=== PATIENT | female | born 1965 | race Caucasian/White ===

== ENCOUNTER 2017-09-10 10:03 | Outpatient (CLI) | payer OTHER ==
[2012-03-07 06:44] VITALS: BMI 31.8
--- NOTE | 2017-09-10 12:29 | NUR ---
1015-ARRIVED FOR VASCULAR ACCESS NURSE. 1130-TO ROOM. 1155-TIME OUT 1200-PROCEDURE START 1215-PROCEDURE END 1225-DISCHARGE INSTRUCTIONS REVIEWED. 1229-D/C HOME AMBULATORY PER REQUEST.
== END 2017-09-10 12:29 | disposition home or self-care (01) ==
LOC: D.OPS 10:03
DX: Z45.2 Encounter for adjustment and management of vascular access device (principal)

== ENCOUNTER 2018-05-14 07:37 | Inpatient (IN) | payer OTHER ==
[~2018-05-14] VITALS: Ht 162.6 cm; Wt 95.5 kg
[2018-05-14] VITALS (7 sets, daily range): BP systolic 92–179; BP diastolic 53–76
--- NOTE | ~2018-05-14 | MORECARE ---
CASE MANAGEMENT DISCHARGE SUMMARY PATIENT: TRICIA KILLIAN UNIT: [id number] ADM DATE: 05/14/18 AGE: 53 : 67 SEX: F ROOM/BED: D.2218 AUTHOR: CASE, STONE RIGGER PHYSICIAN: REFERRING PHYSICIAN: FINA BISHOP DO DATE OF SERVICE: 05/14/18 Discharge Plan Patient Name: TRICIA KILLIAN [facility] : 1965 Planned Disposition: Home Anticipated Discharge Date: Discharge Date: Expected LOS: Initial Reviewer: [email or web address] Initial Review Date: 05/20/2018 Generated: 05/20/18 11:17 am DCPIA - Discharge Planning Initial Assessment Updated by [email or web address]: Deepa Bocanegra on 05/20/18 10:15 am * Is the patient Alert and Oriented? Yes * How many steps to enterexit or inside your home? 12 * PCP DARIO * Pharmacy [facility] [address] * Preadmission Environment Home with Family * ADLs Independent * Equipment None * List name and contact numbers for known caregivers / representatives who currently or will assist patient after discharge: BRETT () [phone] * Verbal permission to speak to the caregivers and representatives has been obtained from the patient. Yes * Community resources currently utilized None * Additional services required to return to the preadmission environment? Yes * Can the patient safely return to the preadmission environment? Yes * Has this patient been hospitalized within the prior 30 days at any hospital? No Patient Name: TRICIA KILLIAN Page [id number] All edits/amendments must be made on the electronic document DICTATION DATE: 05/20/18 1017 GROUNDS/MAINTENANCE SPECIALIST: 05/20/18 1017 RPT#: [id number] DC DATE: STATUS: ADM IN [facility] [address] [place] [address] END OF REPORT
[2018-05-14] MEDS ORDERED: BUPROPION XL300 MG PO (07:42)
[2018-05-14] MEDS ORDERED: BUPROPION XL150 MG PO (07:43)
[2018-05-14] MEDS ORDERED: MIRAPEX1 MG PO (07:43)
[2018-05-14] MEDS ORDERED: SYNTHROID200 MC1 PO (07:43)
[2018-05-14] MEDS ORDERED: LAMICTAL ODT25 MG PO (07:44)
[2018-05-14 09:46] LABS: ALBUMIN 2.8 g/dL (3.4-5.0); ANION GAP 12.9 mmol/L (8-16); BASOPHILS 0.2 % (0-2); BILIRUBIN - TOTAL 0.39 mg/dL (0.2-1.3); CARBON DIOXIDE 23.4 mmol/L (21.0-32.0); CREATININE - SERUM 1.1 mg/dL (0.6-1.3); EOSINOPHILS 0.1 % (0-7); HEMATOCRIT 36.7 % (36.0-48.0); HEMOGLOBIN 12.2 g/dL (12-16); IMMATURE GRANULOCYTES 0.7 % (0-5); LYMPHOCYTES 5.2 % (15-50); MCH 31.6 pg (26.0-34.0); MCHC 33.2 g/dL (31.0-37.0); MCV 95.1 fL (80.0-100.0); MEAN PLATELET VOLUME 10.5 fL (7.4-10.4); MONOCYTES 2.1 % (2-11); NEUTROPHILS 91.7 % (40-80); POTASSIUM - SERUM 3.3 mmol/L (3.5-5.1); PROTEIN - SERUM 7.2 g/dL (6.4-8.2); RBC 3.86 10x6/uL (4.00-5.40); RDW 14.1 % (11.5-14.5); WBC 13.2 10x3/uL (4.8-10.8)
[2018-05-14 09:49] LABS: PLATELET COUNT 243 10x3/uL (130-400)
[2018-05-15 04:26] LABS: BASOPHILS 0.2 % (0-2); EOSINOPHILS 0.2 % (0-7); IMMATURE GRANULOCYTES 0.5 % (0-5); LYMPHOCYTES 6.4 % (15-50); MCH 31.9 pg (26.0-34.0); MCHC 33.3 g/dL (31.0-37.0); MCV 95.7 fL (80.0-100.0); MEAN PLATELET VOLUME 10.2 fL (7.4-10.4); MONOCYTES 2.2 % (2-11); NEUTROPHILS 90.5 % (40-80); PLATELET COUNT 218 10x3/uL (130-400); RBC 3.45 10x6/uL (4.00-5.40); RDW 14.1 % (11.5-14.5)
[2018-05-15 04:40] VITALS: BMI 36.1
[2018-05-15 04:41] LABS: WBC 9.8 10x3/uL (4.8-10.8)
[2018-05-15 04:45] LABS: ANION GAP 11.7 mmol/L (8-16); CALCIUM 7.7 mg/dL (8.5-10.1); CARBON DIOXIDE 24.1 mmol/L (21.0-32.0); CREATININE - SERUM 1.1 mg/dL (0.6-1.3); MAGNESIUM - SERUM 2.1 mg/dL (1.8-2.4); PHOSPHOROUS 2.1 mg/dL (2.5-4.9)
[2018-05-15 05:07] LABS: POTASSIUM - SERUM 3.8 mmol/L (3.5-5.1)
[2018-05-15 05:18] VITALS: BP 125/78
[2018-05-15 07:49] VITALS: BP 136/87
[2018-05-15 12:12] VITALS: BP 118/70
[2018-05-15 15:36] VITALS: BP 125/72
[2018-05-15 19:40] VITALS: BP 119/67
[2018-05-15 23:11] VITALS: BP 134/77
[2018-05-16 04:23] VITALS: BP 152/74
[2018-05-16 04:32] LABS: BASOPHILS 0.1 % (0-2); HEMATOCRIT 30.8 % (36.0-48.0); HEMOGLOBIN 9.8 g/dL (12-16); IMMATURE GRANULOCYTES 0.6 % (0-5); MCH 30.4 pg (26.0-34.0); MCHC 31.8 g/dL (31.0-37.0); MCV 95.7 fL (80.0-100.0); MEAN PLATELET VOLUME 10.8 fL (7.4-10.4); MONOCYTES 4.5 % (2-11); NEUTROPHILS 80.8 % (40-80); PLATELET COUNT 233 10x3/uL (130-400); RBC 3.22 10x6/uL (4.00-5.40); RDW 14.7 % (11.5-14.5); WBC 7.9 10x3/uL (4.8-10.8)
[2018-05-16 04:48] LABS: ALBUMIN 2.1 g/dL (3.4-5.0); ANION GAP 10.8 mmol/L (8-16); BILIRUBIN - TOTAL 0.13 mg/dL (0.2-1.3); CALCIUM 7.5 mg/dL (8.5-10.1); CREATININE - SERUM 0.9 mg/dL (0.6-1.3); PHOSPHOROUS 2.4 mg/dL (2.5-4.9); POTASSIUM - SERUM 3.8 mmol/L (3.5-5.1); PROTEIN - SERUM 5.7 g/dL (6.4-8.2)
[2018-05-16 07:58] VITALS: BP 142/91
[2018-05-16 19:22] LABS: APTT 45.7 SECONDS (22.8-39.4); INR 1.1 (0.85-1.17); PROTIME 13.8 SECONDS (11.6-15.0)
[2018-05-16 20:52] VITALS: BP 146/84
[2018-05-16 21:13] VITALS: Ht 162.6 cm; Wt 95.5 kg
[2018-05-17 00:30] VITALS: BP 136/78
[2018-05-17 04:13] LABS: BASOPHILS 0.5 % (0-2); EOSINOPHILS 2.7 % (0-7); HEMATOCRIT 29.7 % (36.0-48.0); HEMOGLOBIN 9.8 g/dL (12-16); IMMATURE GRANULOCYTES 0.7 % (0-5); LYMPHOCYTES 18.2 % (15-50); MCH 31.1 pg (26.0-34.0); MCV 94.3 fL (80.0-100.0); MEAN PLATELET VOLUME 10.2 fL (7.4-10.4); MONOCYTES 6.5 % (2-11); NEUTROPHILS 71.4 % (40-80); PLATELET COUNT 261 10x3/uL (130-400); RBC 3.15 10x6/uL (4.00-5.40); RDW 14.8 % (11.5-14.5)
[2018-05-17 04:14] LABS: WBC 5.9 10x3/uL (4.8-10.8)
[2018-05-17 04:34] LABS: % SATURATION 4 % (15-55); IRON 11 ug/dl (35-150); TOTAL IRON BIND CAPACITY 247 ug/dl (260-445); UNSAT IRON BIND CAPACITY 236 ug/dl (150-375)
[2018-05-17 04:47] LABS: ALKALINE PHOSPHATASE 89 U/L (46-116); ALT (SGPT) 41 U/L (10-68); BILIRUBIN - TOTAL 0.15 mg/dL (0.2-1.3); CALC OSMOLALITY 268 mosm/kg (275-300); CALCIUM 7.6 mg/dL (8.5-10.1); CARBON DIOXIDE 22.2 mmol/L (21.0-32.0); CHLORIDE - SERUM 104 mmol/L (98-107); CREATININE - SERUM 0.8 mg/dL (0.6-1.3); FERRITIN 372 ng/mL (3-244); GLUCOSE 88 mg/dL (74-106); PHOSPHOROUS 2.5 mg/dL (2.5-4.9); PROTEIN - SERUM 5.8 g/dL (6.4-8.2); SODIUM 136 mmol/L (136-145); UREA NITROGEN 6 mg/dL (7-18); eGFR NON AFRICAN AMERICAN 80 mL/min (90-120)
[2018-05-17 06:17] VITALS: BP 140/90
[2018-05-17 07:43] VITALS: BP 159/94
[2018-05-17 08:56] LABS: APPEARANCE - CSF COLORLESS; RBC - CSF 0 cmm (0-0)
[2018-05-17 09:22] LABS: GLUCOSE - CSF 52 MG/DL (40-75); PROTEIN - CSF 24 MG/DL (12-60)
[2018-05-17 12:23] VITALS: BP 150/90
[2018-05-17 19:50] VITALS: BP 152/94
[2018-05-18] VITALS: BP 138/94
[2018-05-18 04:00] VITALS: BP 153/99
[2018-05-18 07:34] LABS: BASOPHILS 0.3 % (0-2); EOSINOPHILS 3.4 % (0-7); HEMATOCRIT 29.1 % (36.0-48.0); HEMOGLOBIN 9.5 g/dL (12-16); IMMATURE GRANULOCYTES 1.5 % (0-5); LYMPHOCYTES 15.3 % (15-50); MCH 30.7 pg (26.0-34.0); MCHC 32.6 g/dL (31.0-37.0); MCV 94.2 fL (80.0-100.0); MEAN PLATELET VOLUME 9.8 fL (7.4-10.4); MONOCYTES 6.1 % (2-11); NEUTROPHILS 73.4 % (40-80); PLATELET COUNT 288 10x3/uL (130-400); RBC 3.09 10x6/uL (4.00-5.40); RDW 14.9 % (11.5-14.5); WBC 6.2 10x3/uL (4.8-10.8)
[2018-05-18 07:47] LABS: ALKALINE PHOSPHATASE 98 U/L (46-116); ALT (SGPT) 44 U/L (10-68); BILIRUBIN - TOTAL 0.14 mg/dL (0.2-1.3); CALC OSMOLALITY 274 mosm/kg (275-300); CALCIUM 7.7 mg/dL (8.5-10.1); CARBON DIOXIDE 25.6 mmol/L (21.0-32.0); CHLORIDE - SERUM 106 mmol/L (98-107); CREATININE - SERUM 0.7 mg/dL (0.6-1.3); GLUCOSE 86 mg/dL (74-106); PHOSPHOROUS 3.4 mg/dL (2.5-4.9); POTASSIUM - SERUM 4.5 mmol/L (3.5-5.1); PROTEIN - SERUM 5.1 g/dL (6.4-8.2); SODIUM 140 mmol/L (136-145); UREA NITROGEN 5 mg/dL (7-18); eGFR NON AFRICAN AMERICAN > 90 mL/min (90-120)
[2018-05-18 07:48] VITALS: BP 152/92
[2018-05-18 12:08] VITALS: BP 155/95
[2018-05-18 20:00] VITALS: BP 154/80
[2018-05-19] VITALS: BP 130/81
[2018-05-19 04:00] VITALS: BP 150/93
[2018-05-19 05:39] LABS: BASOPHILS 0.7 % (0-2); EOSINOPHILS 3.6 % (0-7); HEMOGLOBIN 10.5 g/dL (12-16); IMMATURE GRANULOCYTES 3.8 % (0-5); LYMPHOCYTES 27.8 % (15-50); MCH 31.1 pg (26.0-34.0); MCHC 32.8 g/dL (31.0-37.0); MCV 94.7 fL (80.0-100.0); MEAN PLATELET VOLUME 9.7 fL (7.4-10.4); MONOCYTES 5.6 % (2-11); NEUTROPHILS 58.5 % (40-80); RBC 3.38 10x6/uL (4.00-5.40); WBC 5.6 10x3/uL (4.8-10.8)
[2018-05-19 05:44] LABS: PLATELET COUNT 353 10x3/uL (130-400)
[2018-05-19 05:49] LABS: CALC OSMOLALITY 272 mosm/kg (275-300); CALCIUM 8.4 mg/dL (8.5-10.1); CARBON DIOXIDE 24.3 mmol/L (21.0-32.0); CHLORIDE - SERUM 106 mmol/L (98-107); CREATININE - SERUM 0.8 mg/dL (0.6-1.3); GLUCOSE 90 mg/dL (74-106); POTASSIUM - SERUM 4.4 mmol/L (3.5-5.1); SODIUM 138 mmol/L (136-145); UREA NITROGEN 5 mg/dL (7-18); eGFR NON AFRICAN AMERICAN 80 mL/min (90-120)
[2018-05-19 07:45] VITALS: BP 161/104
[2018-05-19 12:07] VITALS: BP 173/107
[2018-05-19 15:29] VITALS: BP 166/96
[2018-05-19 20:06] LABS: HSV 1 DNA (PCR) Negative (Negative); HSV 2 DNA (PCR) Negative (Negative)
[2018-05-19 20:08] VITALS: BP 152/99
[2018-05-20 02:34] VITALS: BP 149/101
[2018-05-20 04:25] LABS: BASOPHILS 0.6 % (0-2); EOSINOPHILS 4.6 % (0-7); HEMATOCRIT 33.4 % (36.0-48.0); HEMOGLOBIN 11.1 g/dL (12-16); LYMPHOCYTES 20.7 % (15-50); MCH 31.1 pg (26.0-34.0); MCHC 33.2 g/dL (31.0-37.0); MCV 93.6 fL (80.0-100.0); MEAN PLATELET VOLUME 9.6 fL (7.4-10.4); NEUTROPHILS 63.1 % (40-80); RBC 3.57 10x6/uL (4.00-5.40); RDW 14.5 % (11.5-14.5); WBC 6.8 10x3/uL (4.8-10.8)
[2018-05-20 04:32] LABS: PLATELET COUNT 475 10x3/uL (130-400)
[2018-05-20 04:39] LABS: CALCIUM 8.7 mg/dL (8.5-10.1); CREATININE - SERUM 0.9 mg/dL (0.6-1.3)
[2018-05-20 04:52] LABS: ANION GAP 10.3 mmol/L (8-16); CARBON DIOXIDE 30.4 mmol/L (21.0-32.0); PHOSPHOROUS 4.3 mg/dL (2.5-4.9); POTASSIUM - SERUM 3.7 mmol/L (3.5-5.1)
[2018-05-20 06:28] VITALS: BP 155/97
[2018-05-20] MEDS ORDERED: VIBRAMYCIN 100100 MG PO (07:00)
[2018-05-20] MEDS ORDERED: CEFUROXIME250 MG PO (07:01)
[2018-05-20] MEDS ORDERED: ALBUTEROL2.5 MG/3 M INH (07:01)
[2018-05-20] MEDS ORDERED: BENZONATATE200 MG PO (07:01)
[2018-05-20] MEDS ORDERED: MUCINEX DM ER1 EAC1 PO (07:02)
[2018-05-20] MEDS ORDERED: PROMETHAZINE W473 M1 PO (07:02)
[2018-05-20 13:17] LABS: FUNGUS STAIN Final report (())
[2018-05-20 15:25] LABS: CRYPTO AG - CSF Negative (Negative)
[2018-05-20 15:25] LABS: CRYPTOCOCCUS AG - SERUM Negative (Negative); EHRLICHIA CHAFF IGG Negative (Neg:<1:64); EHRLICHIA CHAFF IGM Negative (Neg:<1:20); HGE IGG TITER Negative (Neg:<1:64); HGE IGM TITER Negative (Neg:<1:20)
[2018-05-20 16:13] LABS: HISTOPLASMA GAL MANNAN AG SER <0.5 (<0.5 ng/mL)
[2018-05-23 10:21] LABS: F. TULARENSIS - IGG Negative (()); F. TULARENSIS - IGM Negative (())
[2018-06-15 19:07] LABS: FUNGUS MYCOLOGY CULTURE Final report (())
== END 2018-05-20 09:50 | disposition home or self-care (01) | DRG 195 ==
LOC: D.ER 07:37 → D.EDHOLD 11:36 → D.MS 11:36 → D.EDHOLD 13:03 → D.SDCHOLD 13:03 → D.MS 19:14
PROVIDERS: Family Medicine; Internal Medicine Pulmonary Disease; Student in an Organized Health Care Education/Training Program
PROC: 009U3ZX Drainage of Spinal Canal, Percutaneous Approach, Diagnostic (ICD-10-PCS; principal; 2018-05-17)
PROC: B01B1ZZ Fluoroscopy of Spinal Cord using Low Osmolar Contrast (ICD-10-PCS; 2018-05-17)
DX: J10.08 Influenza due to other identified influenza virus with other specified pneumonia (principal); J13 Pneumonia due to Streptococcus pneumoniae; E03.9 Hypothyroidism, unspecified; F32.9 Major depressive disorder, single episode, unspecified; F41.9 Anxiety disorder, unspecified; Z86.718 Personal history of other venous thrombosis and embolism; G25.81 Restless legs syndrome; E87.6 Hypokalemia; D64.9 Anemia, unspecified; G44.209 Tension-type headache, unspecified, not intractable; G43.909 Migraine, unspecified, not intractable, without status migrainosus

== ENCOUNTER 2018-08-16 09:00 | Day surgery (SDC) | payer OTHER ==
[2018-08-15 09:26] LABS: HEMATOCRIT 33.6 % (36.0-48.0); HEMOGLOBIN 10.7 g/dL (12-16); MCH 28.8 pg (26.0-34.0); MCHC 31.8 g/dL (31.0-37.0); MCV 90.3 fL (80.0-100.0); MEAN PLATELET VOLUME 9.2 fL (7.4-10.4); RBC 3.72 10x6/uL (4.00-5.40); RDW 12.9 % (11.5-14.5); WBC 6.3 10x3/uL (4.8-10.8)
[~2018-08-16] VITALS: Ht 165.1 cm; Wt 88.5 kg
--- NOTE | ~2018-08-16 | OP ---
PATIENT NAME: TRICIA KILLIAN MEDICAL RECORD: [id number] :67 LOCATION:[facility] ADMISSION DATE: SURGEON: KHANG HARDY DO DATE OF OPERATION: 08/16/2018 PROCEDURES PERFORMED: Right knee arthroscopy, partial medial and partial lateral meniscectomies, and lateral release. 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 INDICATIONS: Ms. Killian is a 53-year-old female who presented to my office with knee pain. She has been dealing with it for quite some time. She has been trying all means of nonoperative management including physical therapy and injections, and none of this has completely resolved her symptoms. An MRI was done which showed some chondromalacia of the patella and a somewhat lateral riding patella on the trochlea, and since she had tried all nonoperative means, we told her we would go back and do a lateral release and hopefully get the patella to ride a little bit better in the trochlear groove and she was okay with that. She is aware of risks and benefits of the procedure including , blood clots, bleeding, infection, damage to nerve and vessels, need for further surgery and she consented to the procedure. SURGEON: Khang Hardy DO DESCRIPTION OF PROCEDURE: The patient was taken to the operative suite, laid in supine position, given general anesthetic, and given 2 grams of Ancef preoperatively. The right lower extremity was prepped and draped in sterile fashion. A time-out was then performed and everyone was in agreement with correct side, site, patient, and procedure. The knee was then flexed down to 90 degrees and the lateral portal was established with a #11 blade scalpel after 0.5% Marcaine with epinephrine was injected into medial and lateral proposed portal sites, 5 mL each. The trocar was then entered into the knee. The camera was put in. The chondromalacia was seen on the patella and in the trochlea, very severe, grade IV. The patella was seen to be riding somewhat lateral in the groove when the knee flexed down. The knee was then brought to extension and the lateral gutter was inspected. No loose bodies were seen there. However, in the medial gutter, there was a loose body seen there and that was removed. The knee was then flexed down and the medial compartment was entered. The medial portal was then established with a #18 gauge spinal needle and #11 blade scalpel. A probe was brought in. The meniscus was probed and seen to have a tear in the posterior horn as well as grade IV chondromalacia on the medial femoral condyle in the area of contact of mid flexion to femoral condyle. Abrasion chondroplasty was done, removing all the loose cartilage, and with a biter; the meniscal tear was trimmed back to a stable spot and a shaver was used to trim it back to a more stable position at the posterior horn of the medial meniscus. The ACL was then probed and seen to be very taut and in good position. The leg was then [id number]'ed and the lateral compartment was entered and seen to have a tear on the inner aspect of the lateral meniscus. This was chewed off with the shaver as well back to a stable position. The OPERATIVE REPORT [id number] TRICIA KILLIAN camera site was then changed to the medial portal and the lateral retinaculum was released with a hook probe. Bleeding was coagulated with the same thing. After that was done, the camera was switched back to the lateral portal, getting a good view of where the patellar tracked and it tracked much better into the groove of the trochlea; however, there was chondromalacia noted at the lateral facet of patella and of the trochlea, indicating this has been going on for quite sometime. The water was then turned off and the suction was turned on. Excess fluid was removed out of the knee. The portal sites were then closed with 4-0 Monocryl in inverted interrupted fashion. Steri-Strips were placed on the abdomen. A 4 x 4 and Tegaderm were then placed on the incision sites. ABD was placed on the knee. Webril and Phillip wrap were placed on the knee. The patient was then awakened and taken to recovery in stable condition. BLOOD LOSS: Minimal. COMPLICATIONS: None. TRANSINT:[id number] Voice Confirmation ID: [id number] DOCUMENT ID: [id number] KHANG HARDY DO at 0927 CC: [id number] DICTATION DATE: 08/16/18 1452 FIELD SERVICE ENGINEER: 08/16/18 1541 [facility] 08/16/18 [id number] [place] [address]
[~2018-08-16 09:00] MED LIST: ALBUTEROL2.5 MG/3 M INH; BENZONATATE200 MG PO; BUPROPION XL150 MG PO; BUPROPION XL300 MG PO; CEFUROXIME250 MG PO; LAMICTAL ODT25 MG PO; MIRAPEX1 MG PO; MUCINEX DM ER1 EAC1 PO; PROMETHAZINE W473 M1 PO; SYNTHROID200 MC1 PO; VIBRAMYCIN 100100 MG PO
[2018-08-16 11:00] VITALS: BP 152/90; Ht 165.1 cm; Wt 88.5 kg
[2018-08-16] MEDS ORDERED: OXYCODONE-APAP1 T10 PO (14:46)
== END 2018-08-16 16:50 | disposition home or self-care (01) ==
LOC: D.OPS 09:00 → D.PAN 11:50 → D.OPS 13:45 → D.PAN 13:45 → D.OPS 16:50
PROVIDERS: Anesthesiology
DX: M22.2X1 Patellofemoral disorders, right knee (principal); M22.41 Chondromalacia patellae, right knee; S83.241A Other tear of medial meniscus, current injury, right knee, initial encounter; S83.281A Other tear of lateral meniscus, current injury, right knee, initial encounter; Z01.812 Encounter for preprocedural laboratory examination

== ENCOUNTER → 2019-07-04 07:25 | Outpatient (CLI) | payer OTHER ==
[2018-08-16 11:00] VITALS: BMI 32.5
[~2019-07-04 07:25] MED LIST changes: +ALBUTEROL SULF8.5 GM INH; +CALCIUM 500 +1 EAC3 PO; +OXYCODONE-APAP1 T10 PO; +ULTRAM50 MG PO
== END | disposition home or self-care (01) ==
LOC: D.RAD 07:25
PROVIDERS: ATTEND Internal Medicine Gastroenterology
DX: R05 Cough (principal); R10.13 Epigastric pain; K21.9 Gastro-esophageal reflux disease without esophagitis; Z48.815 Encounter for surgical aftercare following surgery on the digestive system; K59.00 Constipation, unspecified

== ENCOUNTER 2019-07-06 18:46 | Emergency (ER) | payer OTHER ==
[~2019-07-06] VITALS: Ht 165.1 cm; Wt 99.8 kg
[~2019-07-06 18:46] MED LIST changes: -ALBUTEROL SULF8.5 GM INH; -CALCIUM 500 +1 EAC3 PO; -ULTRAM50 MG PO
[2019-07-06 19:03] VITALS: Ht 165.1 cm; Wt 99.8 kg
[2019-07-06 19:24] LABS: BASOPHILS 0.1 % (0-2); EOSINOPHILS 2.2 % (0-7); HEMATOCRIT 35.7 % (36.0-48.0); HEMOGLOBIN 11.5 g/dL (12-16); IMMATURE GRANULOCYTES 0.7 % (0-5); LYMPHOCYTES 12.1 % (15-50); MCHC 32.2 g/dL (31.0-37.0); MCV 86.9 fL (80.0-100.0); MEAN PLATELET VOLUME 9.4 fL (7.4-10.4); MONOCYTES 2.9 % (2-11); PLATELET COUNT 296 10x3/uL (130-400); RBC 4.11 10x6/uL (4.00-5.40); RDW 15.2 % (11.5-14.5)
[2019-07-06 19:32] LABS: APTT 25.1 SECONDS (22.8-39.4); INR 0.93 (0.85-1.17)
[2019-07-06 19:37] LABS: ALBUMIN 3.3 g/dL (3.4-5.0); ALKALINE PHOSPHATASE 159 U/L (46-116); ALT (SGPT) 28 U/L (10-68); BILIRUBIN - TOTAL 0.15 mg/dL (0.2-1.3); CALC OSMOLALITY 278 mosm/kg (275-300); CALCIUM 7.8 mg/dL (8.5-10.1); CARBON DIOXIDE 25.2 mmol/L (21.0-32.0); CHLORIDE - SERUM 104 mmol/L (98-107); CREATININE - SERUM 1.1 mg/dL (0.6-1.3); GLUCOSE 122 mg/dL (74-106); POTASSIUM - SERUM 3.5 mmol/L (3.5-5.1); PROTEIN - SERUM 6.8 g/dL (6.4-8.2); SODIUM 138 mmol/L (136-145); UREA NITROGEN 18 mg/dL (7-18); eGFR NON AFRICAN AMERICAN 55 mL/min (90-120)
[2019-07-06 19:50] LABS: CKMB 2.9 U/L (0.0-3.6); CREATINE KINASE 440 UL (21-215); PRO BNP 235 pg/mL (0-125); TROPONIN-I < 0.017 ng/mL (0.000-0.060)
[2019-07-06] MEDS ORDERED: ALBUTEROL SULF8.5 GM INH (22:30)
[2019-07-06] MEDS ORDERED: CALCIUM 500 +1 EAC3 PO (22:30)
[2019-07-06] MEDS ORDERED: ULTRAM50 MG PO (22:30)
[2019-07-06 23:21] VITALS: BP 121/70
== END 2019-07-06 23:21 | disposition home or self-care (01) ==
LOC: D.ER 18:46
PROVIDERS: Family Medicine
DX: J40 Bronchitis, not specified as acute or chronic (principal); E58 Dietary calcium deficiency; M62.838 Other muscle spasm

== ENCOUNTER → 2020-06-03 08:07 | Outpatient (CLI) | payer OTHER ==
[2019-07-06 19:03] VITALS: BMI 32.5
[~2020-06-03 08:07] MED LIST changes: +ALBUTEROL SULF8.5 GM INH; +CALCIUM 500 +1 EAC3 PO; +ULTRAM50 MG PO
== END | disposition home or self-care (01) ==
LOC: D.HCCECHO 08:07
PROVIDERS: ATTEND Internal Medicine Cardiovascular Disease
DX: I34.0 Nonrheumatic mitral (valve) insufficiency (principal); I44.7 Left bundle-branch block, unspecified; I10 Essential (primary) hypertension